=== PATIENT | male | born 1990 | race Asian ===

== ENCOUNTER 2016-10-24 23:39 | Emergency (ER) | payer BC ==
[~2016-10-24] VITALS: Ht 180.3 cm; Wt 63.8 kg
[~2016-10-24 23:39] MED LIST: HYDR0.5C TOP; MULTTAB PO
[2016-10-24 23:43] VITALS: TEMP 36.8; Ht 180.3 cm; Wt 63.8 kg
[2016-10-25 00:51] VITALS: BP 112/69; PULSE 79; O2SAT 96
--- NOTE | 2016-10-25 05:46 | EMERGENCY ROOM VISIT NOTE ---
ED Visit Note First contact with patient: 00:27 CHIEF COMPLAINT: Ankle pain HISTORY OF PRESENT ILLNESS: This 25-year-old male patient presents to the emergency department after sustaining an injury to the right ankle and foot with a twisting, inversion motion about one month ago. The patient states that he initially sprained his ankle and has been taking it for the past month. He tried to play soccer this evening for the first time since his initial injury, and now complains of pain along the outside of the ankle. The patient does not have pain of the foot. The patient rates the pain as dull and 6/10. The patient is able to bear weight on the foot. Constant pain, worse with movement , weight bearing, and the dependent position. No knee pain, the patient is able to move their toes. No numbness or weakness of the foot, no laceration. The patient has not had a previous fracture to this ankle. The patient has taken nothing for the pain. The patient denies any other injury. REVIEW OF SYSTEMS: A 6 system review of systems was completed with positives and pertinent negatives listed in the HPI. ALLERGIES: See EMR MEDICATIONS: See EMR PMH: No chronic medical disease SOCIAL HISTORY: Student who lives locally PHYSICAL EXAM: Vital Signs: Reviewed Nurse's notes, vital signs stable. GENERAL : male, no acute distress, but appears in pain, well-developed, well- nourished. MENTAL STATUS: Alert, oriented to person place and time, and cooperative. MUSCULOSKELETAL: The right ankle is swollen and tender over the lateral malleolus, but the skin is intact and there is no ligamentous instability. There is no fifth metatarsal tenderness. There is no tenderness over the rest of the foot. There is no calf or tibia/fibular tenderness. There is no visual deformity. The foot and toes are warm and well-perfused. Dorsalis pedis pulse 2+. Sensation to pain and light touch is intact. Capillary refill less than 2 seconds. EMERGENCY DEPARTMENT COURSE: Physical exam and history were performed. Nursing notes and EMR were reviewed. The patient appears to have right ankle pain that returns tonight after initial injury about one month ago. The patient does not have obvious deformity and is intact neurologically. X-rays were obtained and do not appear to show acute fracture or dislocation with official radiology reading pending. I discussed options of care with patient, and offered crutches and a splint. The patient felt comfortable without these as he has been ambulatory otherwise. Based on the length of time that he has had symptoms I recommended that he follow with orthopedics for further care and management. He was instructed on the use of [id number] analgesics. He was otherwise invited back to the ER with any new, worsening, or concerning symptoms. Current/Historical Medications No Active Prescriptions or Reported Meds Allergies Coded Allergies: Bacitracin (Verified Allergy, Unknown, Rash/Hives, 03/27/16) Neomycin (Verified Allergy, Unknown, Rash/Hives, 03/27/16) Polymyxin B (Verified Allergy, Unknown, Rash/Hives, 03/27/16) Latex (Verified Adverse Reaction, Intermediate, hives, 10/24/16) Vital Signs Date Time Temp Pulse Resp B/P Pulse Ox O2 Delivery O2 Flow Rate FiO2 10/25/16 00:51 79 18 112/69 96 10/24/16 23:43 36.8 76 20 107/73 95 Room Air Departure Information Impression Primary Impression: Injury of right ankle Dispostion Home / Self-Care Condition GOOD Prescriptions No Active Prescriptions or Reported Meds Referrals Rigoberto Nelson M.D. Forms HOME CARE DOCUMENTATION FORM, IMPORTANT VISIT INFORMATION Patient Instructions [facility] Additional Instructions You were seen and evaluated today on an emergency basis only. This is not a substitute for, or an effort to provide, complete comprehensive medical care. It is not possible to recognize and treat all injuries or illnesses in a single emergency department visit. For this reason it is recommended that you followup with Orthopedics, Dr. Nelson's office, for ongoing care and evaluation. For baseline pain relief you may alternate ibuprofen and acetaminophen every 4 hours for pain control. Take 600 mg ibuprofen (Advil) and then 4 hours later take 1000 mg acetaminophen (Tylenol). Do not take more than 3000 mg acetaminophen in a single day. You are welcome to return to the emergency department anytime with new, worsening, or concerning symptoms.
--- NOTE | 2016-10-25 06:42 | DIAGNOSTIC IMAGING REPORT ---
RIGHT ANKLE MIN 3 VIEWS ROUTINE CLINICAL HISTORY: Right ankle pain status post trauma COMPARISON: None. DISCUSSION: No fractures or dislocations are visualized. The ankle mortise appears intact on these nonstress views. IMPRESSION: No fractures or dislocations identified. Electronically signed by: Ady Quarles M.D. 10/25/2016 6:40 AM Dictated Date/Time: 10/25/2016 6:40 AM
== END 2016-10-25 00:52 | disposition home or self-care (01) ==
LOC: C.EDB 23:42 → C.EDD 10-25 00:52
DX: S99.911A Unspecified injury of right ankle, initial encounter (principal); X50.1XXA Overexertion from prolonged static or awkward postures, initial encounter